=== PATIENT | female | born 1995 | race African-American/Black ===

== ENCOUNTER 2017-06-15 16:31 | Emergency (ER) | payer MEDICAID ==
[~2017-06-15] VITALS: Ht 167.6 cm; Wt 80.0 kg
[~2017-06-15 16:31] MED LIST: DICY10CA59 PO; INSULIN; LANTUSUD SUBCUT; SIRO0.5T PO; TACR0.00 PO
[2017-06-15 21:43] LABS: CHLORIDE 101 mEq/L (98-107)
[2017-06-15 21:44] LABS: BASOPHILS % 0.7 % (0.0-2.0); HEMATOCRIT. 33.5 % (36.0-48.0); HEMOGLOBIN. 10.5 g/dL (12.0-16.0); LYMPHOCYTES % 20.3 % (20.0-50.0); MEAN CORPUSCULAR HEMOGLOBIN 18.9 pg (28.0-32.0); MEAN CORPUSCULAR VOLUME 60.1 fL (81.0-99.0); MEAN PLATELET VOLUME 9.8 fl (7.4-10.4); MONOCYTES % 4.1 % (2.0-8.0); NEUTROPHILS % 74.9 % (40.0-76.0); PLATELET 168 x1000/uL (130-400); RED BLOOD CELL COUNT 5.58 mill/uL (4.2-5.4); RED CELL DISTRIBUTION WIDTH 17.4 % (11.6-14.6)
[2017-06-15 21:45] LABS: PROTHROMBIN TIME 10.9 sec (9.4-11.6)
[2017-06-15 21:55] LABS: CLARITY URINE CLEAR (CLEAR); COLOR URINE YELLOW (YELLOW); KETONES URINE 4+ (NEGATIVE); LEUKOCYTE ESTERASE URINE NEGATIVE (NEGATIVE); NITRITE URINE NEGATIVE (NEGATIVE); OCCULT BLOOD URINE NEGATIVE (NEGATIVE); PH URINE 5.5 (4.5-8.0); PROTEIN URINE 1+ (NEGATIVE); SPECIFIC GRAVITY URINE 1.039 (1.005-1.030); UROBILINOGEN URINE 0.2 E.U./dL (0.2-1.0)
[2017-06-15 22:39] LABS: PLATELET ESTIMATE NORMAL
[2017-06-15] MEDS ORDERED: ONDANSETRON HCL 4MG/2ML VIAL IV STA (22:51)
[2017-06-15] MEDS ORDERED: MORPHINE SULFATE 4 MG/ML CPJ (NOT FOR IM USE) IV STA (22:51)
[2017-06-15] MEDS ORDERED: SODIUM CHLORIDE 0.9% 1,000 ML IV ONE (22:51)
[2017-06-15] MEDS ORDERED: FAMOTIDINE 20MG/2ML VIAL IV STA (22:51)
[2017-06-15 23:45] LABS: CHLORIDE 102 mEq/L (98-107)
[2017-06-15 23:49] LABS: HCG SCREEN NEGATIVE
[2017-06-15 23:50] LABS: ETHANOL BLOOD < 10 mg/dL
[2017-06-15 23:51] LABS: INR 1.1
[2017-06-16] MEDS ORDERED: ONDANSETRON 4MG ODT PO ONE (01:45)
[2017-06-16 02:05] VITALS: BP 120/82
[2017-06-16 13:56] LABS: *AMPHETAMINES SCREEN URINE NEGATIVE (NEGATIVE); *BARBITURATES SCREEN URINE NEGATIVE (NEGATIVE); *BENZODIAZEPINES SCREEN URINE NEGATIVE (NEGATIVE); *COCAINE SCREEN URINE NEGATIVE (NEGATIVE); METHADONE URINE SCREEN NEGATIVE (NEGATIVE); OPIATES URINE SCREEN NEGATIVE (NEGATIVE); PHENCYCLIDINE URINE SCREEN NEGATIVE (NEGATIVE)
[2017-06-16 14:02] LABS: CANNABINOID URINE SCREEN PRESUMTIVE POSITIVE (NEGATIVE)
== END 2017-06-16 02:20 | disposition home or self-care (01) ==
LOC: ER 16:31 → CANBEDREQ 06-16 08:27
DX: R11.2 Nausea with vomiting, unspecified (principal); E11.9 Type 2 diabetes mellitus without complications; Z79.4 Long term (current) use of insulin; Z90.49 Acquired absence of other specified parts of digestive tract; Z94.4 Liver transplant status
CPT/HCPCS: 36415; 71045; 74176; 80053; 80305; 81003; 83605; 83690; 84703; 85025; 85610; 93005; 96361; 96374; 96375; 99285; G0482; J2270; J2405; J3490; J7030; Q0162; Z7610

== ENCOUNTER 2017-11-17 09:07 | Emergency (ER) | payer MEDICAID | END 2017-11-17 14:08 | disposition left against medical advice (07) | LOC: ER 13:36 | DX: K94.23 Gastrostomy malfunction (principal); Z53.21 Procedure and treatment not carried out due to patient leaving prior to being seen by health care provider ==

== ENCOUNTER 2019-01-20 02:04 | Inpatient (IN) | payer MEDICAID ==
[~2019-01-20] VITALS: Ht 167.6 cm; Wt 39.0 kg
[2019-01-20] MEDS ORDERED: METOCLOPRAMIDE HCL 10MG/2ML VIAL IV STA (03:17)
[2019-01-20] MEDS ORDERED: SODIUM CHLORIDE 0.9% 1,000 ML IV ONE (03:17)
[2019-01-20] MEDS ORDERED: MORPHINE SULFATE 4 MG/ML CPJ (NOT FOR IM USE) IV STA (03:17)
[2019-01-20] MEDS ORDERED: DIPHENHYDRAMINE 50MG/ML VIAL IV ONE (03:30)
[2019-01-20 03:54] LABS: BASOPHILS % 3.2 % (0.0-2.0); EOSINOPHILS % 3.8 % (0.0-5.0); HEMATOCRIT. 32.6 % (36.0-48.0); LYMPHOCYTES % 8.6 % (20.0-50.0); MEAN CORPUSCULAR HEMOGLOBIN 18.7 pg (28.0-32.0); MEAN PLATELET VOLUME 9.5 fl (7.4-10.4); MONOCYTES % 13.2 % (2.0-8.0); NEUTROPHILS % 71.2 % (40.0-76.0); PLATELET 138 x1000/uL (130-400); RED BLOOD CELL COUNT 5.35 mill/uL (4.2-5.4)
[2019-01-20 03:57] LABS: CHLORIDE 111 mEq/L (98-107)
[2019-01-20 03:59] LABS: PLATELET ESTIMATE NORMAL
[2019-01-20 04:01] LABS: ETHANOL BLOOD < 10 mg/dL
[2019-01-20 04:03] LABS: BETA HYDROXYBUTYRATE 0.1 mMol/L (0.0-0.3)
[2019-01-20 04:30] LABS: CLARITY URINE CLOUDY (CLEAR); COLOR URINE YELLOW (YELLOW); KETONES URINE TRACE (NEGATIVE); LEUKOCYTE ESTERASE URINE TRACE (NEGATIVE); NITRITE URINE NEGATIVE (NEGATIVE); OCCULT BLOOD URINE NEGATIVE (NEGATIVE); PROTEIN URINE 1+ (NEGATIVE); SPECIFIC GRAVITY URINE 1.021 (1.005-1.030)
[2019-01-20 04:42] LABS: METHADONE URINE SCREEN NEGATIVE (NEGATIVE); PHENCYCLIDINE URINE SCREEN NEGATIVE (NEGATIVE)
[2019-01-20 04:43] LABS: *AMPHETAMINES SCREEN URINE NEGATIVE (NEGATIVE); *BARBITURATES SCREEN URINE NEGATIVE (NEGATIVE); *COCAINE SCREEN URINE NEGATIVE (NEGATIVE)
[2019-01-20 04:48] LABS: *BENZODIAZEPINES SCREEN URINE PRESUMTIVE POSITIVE (NEGATIVE); CANNABINOID URINE SCREEN PRESUMTIVE POSITIVE (NEGATIVE); OPIATES URINE SCREEN PRESUMTIVE POSITIVE (NEGATIVE)
[2019-01-20 08:18] VITALS: BP 141/93
[2019-01-20] MEDS ORDERED: ONDANSETRON HCL 4MG/2ML INJ IV PRN (09:15)
[2019-01-20] MEDS ORDERED: ACETAMINOPHEN 325MG TABLET PO PRN (09:15)
[2019-01-20] MEDS: MORPHINE SULFATE 2 MG/ML CPJ (NOT FOR IM USE) IV PRN ×3 (09:46→20:18)
[2019-01-20] MEDS ORDERED: NPH,100I SQ (10:01)
[2019-01-20] MEDS ORDERED: PRED5TAB MT (10:01)
[2019-01-20] MEDS ORDERED: CYPR4SYR MT (10:04)
[2019-01-20] MEDS ORDERED: MAGN100T3 PO (10:07)
[2019-01-20] MEDS ORDERED: TRAZ-251 MT (10:07)
[2019-01-20] MEDS: PANTOPRAZOLE SODIUM 40 MG/VIAL IV SCH (12:52)
[2019-01-20] MEDS: METOCLOPRAMIDE HCL 10MG/2ML VIAL IV SCH ×2 (12:53→17:55)
[2019-01-20 16:00] VITALS: BP 102/72
[2019-01-20] MEDS ORDERED: DEXTROSE 50% WATER 50ML SYRINGE IV PRN (16:00)
[2019-01-20] MEDS: INSULIN LISPRO 100 UNITS/ML SUBCUT SCH ×2 (17:50→22:30)
[2019-01-20] MEDS: DICYCLOMINE HCL 10MG CAPSULE PO SCH (17:55)
[2019-01-20] MEDS: TACROLIMUS 1MG CAPSULE GT SCH (17:56)
[2019-01-20] MEDS: BLOOD SUGAR DIAGNOSTIC STRIP TEST SCH ×2 (17:56→21:00)
[2019-01-20 20:00] VITALS: BP 143/95
[2019-01-20] MEDS: TRAZODONE HCL 50MG TABLET PO SCH (20:19)
[2019-01-20] MEDS: CYPROHEPTADINE HCL 4 MG TABLET GT SCH (21:33)
[2019-01-21] VITALS: BP 149/96
[2019-01-21] MEDS: MORPHINE SULFATE 2 MG/ML CPJ (NOT FOR IM USE) IV PRN ×2 (01:30→16:05)
[2019-01-21] MEDS ORDERED: HYDROMORPHONE HCL/PF 2MG/ML CPJ IM PRN (03:00)
[2019-01-21 04:00] VITALS: BP 121/89
[2019-01-21] MEDS: METOCLOPRAMIDE HCL 10MG/2ML VIAL IV SCH ×4 (05:58→18:31)
[2019-01-21] MEDS: CYPROHEPTADINE HCL 4 MG TABLET GT SCH ×3 (06:02→21:38)
[2019-01-21] MEDS: BLOOD SUGAR DIAGNOSTIC STRIP TEST SCH ×4 (06:03→21:37)
[2019-01-21 08:00] VITALS: BP 138/92
[2019-01-21] MEDS: INSULIN LISPRO 100 UNITS/ML SUBCUT SCH ×4 (08:24→21:48)
[2019-01-21] MEDS: DICYCLOMINE HCL 10MG CAPSULE PO SCH ×3 (09:04→18:31)
[2019-01-21] MEDS: TACROLIMUS 1MG CAPSULE GT SCH ×2 (09:04→18:31)
[2019-01-21] MEDS: HYDROMORPHONE HCL/PF 2MG/ML CPJ IV PRN ×3 (09:04→19:35)
[2019-01-21] MEDS: PANTOPRAZOLE SODIUM 40 MG/VIAL IV SCH (09:04)
[2019-01-21] MEDS: PREDNISONE 5MG TABLET PO SCH (09:05)
[2019-01-21 10:20] LABS: HEMATOCRIT. 34.3 % (36.0-48.0); HEMOGLOBIN. 10.7 g/dL (12.0-16.0); MEAN CORPUSCULAR HEMOGLOBIN 18.8 pg (28.0-32.0); MEAN CORPUSCULAR VOLUME 60.5 fL (81.0-99.0); RED BLOOD CELL COUNT 5.67 mill/uL (4.2-5.4); RED CELL DISTRIBUTION WIDTH 17.7 % (11.6-14.6)
[2019-01-21 10:31] LABS: CHLORIDE 107 mEq/L (98-107)
[2019-01-21] MEDS ORDERED: POTASSIUM CHLORIDE 20MEQ TABLET SR PO NR (10:45)
[2019-01-21 12:00] VITALS: BP 127/91
[2019-01-21 12:55] LABS: PLATELET 150 x1000/uL (130-400)
[2019-01-21 12:57] LABS: PLATELET ESTIMATE NORMAL
[2019-01-21] MEDS ORDERED: POTASSIUM CHLORIDE INJ 40 MEQ in DEXT 5% WATER 500 ML IV ONE (14:30)
[2019-01-21] MEDS ORDERED: SODIUM BICARBONATE 4% (2.4MEQ) 5ML VIAL IV ONE (15:02)
[2019-01-21] MEDS ORDERED: IOHEXOL-300 100 ML BOTTLE ONE (15:02)
[2019-01-21] MEDS ORDERED: LIDOCAINE HCL 1% 20ML VIAL (Pyxis) INJ ONE (15:02)
[2019-01-21] MEDS ORDERED: LIDOCAINE HCL 2% JELLY 5ML ONE (15:04)
[2019-01-21 20:00] VITALS: BP 136/95
[2019-01-21] MEDS: TRAZODONE HCL 50MG TABLET PO SCH (21:38)
[2019-01-21] MEDS: INSULIN GLARGINE UD 100 UNITS/ML SYR SUBCUT SCH (21:49)
[2019-01-22] VITALS: BP 106/71
[2019-01-22] MEDS: METOCLOPRAMIDE HCL 10MG/2ML VIAL IV SCH ×4 (01:06→18:19)
[2019-01-22] MEDS: HYDROMORPHONE HCL/PF 2MG/ML CPJ IV PRN ×5 (01:10→21:45)
[2019-01-22] MEDS: MORPHINE SULFATE 2 MG/ML CPJ (NOT FOR IM USE) IV PRN ×3 (02:30→19:30)
[2019-01-22 04:00] VITALS: BP 138/101
[2019-01-22] MEDS: CYPROHEPTADINE HCL 4 MG TABLET GT SCH ×3 (05:44→21:26)
[2019-01-22] MEDS: BLOOD SUGAR DIAGNOSTIC STRIP TEST SCH ×4 (06:29→21:00)
[2019-01-22] MEDS: INSULIN LISPRO 100 UNITS/ML SUBCUT SCH ×4 (07:50→21:38)
[2019-01-22 08:00] VITALS: BP 121/82
[2019-01-22] MEDS: PANTOPRAZOLE SODIUM 40 MG/VIAL IV SCH (08:36)
[2019-01-22] MEDS: MULTIVITAMINS,THER W-MINERALS TABLET PO SCH (10:57)
[2019-01-22] MEDS: TACROLIMUS 1MG CAPSULE GT SCH ×2 (10:57→16:29)
[2019-01-22] MEDS: PREDNISONE 5MG TABLET PO SCH (10:57)
[2019-01-22] MEDS: DICYCLOMINE HCL 10MG CAPSULE PO SCH ×3 (10:58→16:29)
[2019-01-22] MEDS: INSULIN GLARGINE UD 100 UNITS/ML SYR SUBCUT SCH ×2 (11:14→21:39)
[2019-01-22 12:00] VITALS: BP 120/92
[2019-01-22] MEDS ORDERED: PROCHLORPERAZINE 10MG/2ML VIAL IV PRN (15:30)
[2019-01-22 16:00] VITALS: BP 117/79
[2019-01-22 20:00] VITALS: BP 116/79
[2019-01-22] MEDS: TRAZODONE HCL 50MG TABLET PO SCH (21:26)
[2019-01-23] VITALS: BP 118/78
[2019-01-23] MEDS: METOCLOPRAMIDE HCL 10MG/2ML VIAL IV SCH ×3 (00:32→13:21)
[2019-01-23 04:00] VITALS: BP 107/73
[2019-01-23] MEDS: HYDROMORPHONE HCL/PF 2MG/ML CPJ IV PRN ×3 (04:31→11:42)
[2019-01-23] MEDS: CYPROHEPTADINE HCL 4 MG TABLET GT SCH ×2 (05:29→13:22)
[2019-01-23] MEDS: BLOOD SUGAR DIAGNOSTIC STRIP TEST SCH ×2 (06:22→13:05)
[2019-01-23] MEDS: INSULIN LISPRO 100 UNITS/ML SUBCUT SCH ×2 (07:50→12:50)
[2019-01-23 08:00] VITALS: BP 112/68
[2019-01-23] MEDS: PANTOPRAZOLE SODIUM 40 MG/VIAL IV SCH (08:43)
[2019-01-23] MEDS: TACROLIMUS 1MG CAPSULE GT SCH (08:43)
[2019-01-23] MEDS: MULTIVITAMINS,THER W-MINERALS TABLET PO SCH (08:44)
[2019-01-23] MEDS: PREDNISONE 5MG TABLET PO SCH (08:44)
[2019-01-23] MEDS: DICYCLOMINE HCL 10MG CAPSULE PO SCH ×2 (08:56→13:21)
[2019-01-23] MEDS: INSULIN GLARGINE UD 100 UNITS/ML SYR SUBCUT SCH (10:28)
[2019-01-23 12:00] VITALS: BP 114/61
[2019-01-23] MEDS: MORPHINE SULFATE 2 MG/ML CPJ (NOT FOR IM USE) IV PRN (13:27)
[2019-01-23 13:59] VITALS: BP 112/60
[2019-01-23] MEDS ORDERED: INSULIN GLARGINE UD 100 UNITS/ML SYR SUBCUT SCH (22:00)
[2019-01-26 13:11] LABS: ATYPICAL pANCA <1:20 titer (Neg:<1:20)
[2019-01-27 10:08] LABS: SACCHAROMYCES CEREVISIAE IGG 46.4 Units (0.0-24.9); SACCHAROMYCES CEREVISIAE IGM 25.6 Units (0.0-24.9)
== END 2019-01-23 14:09 | disposition home or self-care (01) | DRG 252 ==
LOC: ER 02:04 → 6EST 05:55 → EDBEDREQ 06:02 → EDBEDREQTM 06:02 → ENRESERV 07:34
PROVIDERS: ADMIT Internal Medicine; ATTEND Internal Medicine
PROC: 3C1ZX8Z Irrigation of Indwelling Device using Irrigating Substance, External Approach (ICD-10-PCS; principal; 2019-01-22)
DX: K94.23 Gastrostomy malfunction (principal); E44.0 Moderate protein-calorie malnutrition; Z94.4 Liver transplant status; K31.84 Gastroparesis; E11.43 Type 2 diabetes mellitus with diabetic autonomic (poly)neuropathy; K92.0 Hematemesis; K29.70 Gastritis, unspecified, without bleeding; K21.9 Gastro-esophageal reflux disease without esophagitis; G89.29 Other chronic pain; N20.2 Calculus of kidney with calculus of ureter; D50.9 Iron deficiency anemia, unspecified; R79.89 Other specified abnormal findings of blood chemistry; R62.7 Adult failure to thrive; Z90.49 Acquired absence of other specified parts of digestive tract; Z93.4 Other artificial openings of gastrointestinal tract status; Z93.1 Gastrostomy status; Z68.1 Body mass index [BMI] 19.9 or less, adult; Z79.4 Long term (current) use of insulin
CPT/HCPCS: 36415; 49450; 71045; 74176; 80048; 80076; 80305; 80320; 81003; 82010; 82962; 83036; 83605; 84145; 86256; 86671; 99285; C1769; C1893; C9113; J1170; J1200; J1815; J2270; J2405; J2765; J3480; J3490; J7030; J7060; J7507; J7512; Q9967; G0480